=== PATIENT | female | born 1965 | race African-American/Black ===

== ENCOUNTER → 2019-05-06 | Outpatient (CLI) | payer OTHER ==
--- NOTE | 2019-05-06 16:01 | RAD ---
MR of the right ankle HISTORY: Achilles tendon rupture. TECHNIQUE: Routine multiplanar sequences are obtained. FINDINGS: Peroneal tendons are intact. Anterior talofibular, calcaneofibular and posterior talofibular ligaments are intact. Tibiofibular syndesmotic ligaments appear intact. Posterior tibial and flexor tendons are intact. No acute medial ligamentous tear. Anterior tibial and extensor tendons are intact. Mild thickening and mild patchy signal identified within the distal Achilles tendon through the insertion compatible with mild tendinosis. No measurable defect or tear. Mild edema and fluid at the retrocalcaneal bursa and adjacent inferior pre-Achilles fat. Minimal edema within the subjacent calcaneus. No evidence of acute plantar fasciitis. Small calcaneal enthesophyte at the attachment. Subtalar joints are patent. Tarsal sinus intact. Talar dome is intact. No evidence of acute fracture. No aggressive bone destruction. No significant joint effusion. No abnormal soft tissue fluid collection. IMPRESSION: Mild insertional Achilles tendinosis. No evidence of high-grade tear or rupture. Electronically signed by: Nikolay Oliva MD (05/06/2019 3:58 PM) [id number]
== END | disposition home or self-care (01) ==
LOC: MRI 14:39
PROVIDERS: ATTEND Preventive Medicine Occupational Medicine
DX: S86.011A Strain of right Achilles tendon, initial encounter (principal); M77.52 Other enthesopathy of left foot and ankle; X58.XXXA Exposure to other specified factors, initial encounter; Y93.89 Activity, other specified; Y92.89 Other specified places as the place of occurrence of the external cause; Y99.8 Other external cause status
CPT/HCPCS: 73721